=== PATIENT | female | born 1975 | race Two or more races ===

== ENCOUNTER 2018-02-17 13:59 | Emergency (ER) | payer MEDICAID ==
[2018-02-17 14:44] LABS: % BASOPHILS 0.6 % (0.0-2.0); % LYMPHOCYTES 31.5 % (20.0-50.0); % MONOCYTES 6.9 % (2.0-10.0); EOSINOPHILE ABSOLUTE 0.2 Th/cmm (0.1-0.4); HEMATOCRIT 35.1 % (41.0-60); HEMOGLOBIN 11.7 gm/dL (12-16); LYMPHOCYTE ABSOLUTE 2.5 Th/cmm (1.5-3.0); MEAN CELL VOLUME 89.9 fl (81-100); MEAN CORPUSCULAR HEMOGLOBIN 29.9 pg (27.0-31.0); MEAN CORPUSCULAR HGB CONC 33.3 pg (28.0-36.0); MEAN PLATELET VOLUME 7.5 fl; MONOCYTE ABSOLUTE 0.5 Th/cmm (0.3-1.0); NEUTROPHILE ABSOLUTE 4.6 Th/cmm (1.8-8.0); PLATELET COUNT 248 Th/cmm (150-400); RED BLOOD COUNT 3.91 Mil/cmm (3.80-5.10); RED CELL DISTRIBUTION WIDTH 13.4 % (11.5-20.0); WHITE BLOOD COUNT 7.8 Th/cmm (4.8-10.8)
--- NOTE | 2018-02-17 14:45 | ED Physician Chart ---
ED Chief Complaint/HPI - Patient Information Date Seen:: 02/17/18 Time Seen:: 14:20 Chief Complaint:: dizziness History of Present Illness:: THIS IS A 43 YO FEMALE WITH SEVERAL BOUTS OF DIZZINESS WITHOUT LOSS OF CONSCIOUSNESS. SHE DENIES, FEVER, HEADACHE BUT ADMITS TO VOMITING ONCE. SHE DENIES DIARRHEA AND CONSTIPATION. SHE DENIES PAINFUL OR FREQUENT URINATION. SHE DENIES HYPERTENSION AND HEART DISEASE. SHE DENIES A RECENT COUGH OR COLD AND DENIES HAVING A HEADACHE. Allergies:: Allergies Allergy/AdvReac Type Severity Reaction Status Date / Time No Known Allergies Allergy Verified 02/17/18 14:13 Vitals:: Vital Signs - 8 hr 02/17/18 14:13 Temp 98.1 F HR 83 RR 16 BP 123/86 O2 Sat % 97 Historian:: Patient Review:: Nurse's Note Reviewed ED Review of Systems - Review of Systems General/Constitutional: No fever, No chills, No weight loss, No weakness, No diaphoresis, No edema, No loss of appetite Skin: No skin lesions, No rash, No bruising Head: No headache, No light-headedness Eyes: No loss of vision, No pain, No diplopia ENT: No earache, No nasal drainage, No sore throat, No tinnitus Neck: No neck pain, No swelling, No thyromegaly, No stiffness, No mass noted Cardio Vascular: No chest pain, No palpitations, No PND, No orthopnea, No edema Pulmonary: No SOB, No cough, No sputum, No wheezing GI: No nausea, No vomiting, No diarrhea, No pain, No melena, No hematochezia, No constipation, No hematemesis G/U: No dysuria, No frequency, No hematuria Musculoskeletal: No bone or joint pain, No back pain, No muscle pain Endocrine: No polyuria, No polydipsia Psychiatric: No prior psych history, No depression, No anxiety, No suicidal ideation Hematopoietic: No bruising, No lymphadenopathy Allergic/Immuno: No urticaria, No angioedema Neurological: No syncope, No focal symptoms, No weakness, No paresthesia, No headache, No seizure, Dizziness, No confusion, No vertigo ED Past Medical History - Past Medical History Obtainable: Yes Past Medical History: No significant medical hx Family History: None Social History: Non Smoker, No Alcohol, No Drug Use, Employed Surgical History: (THREE C-SECTIONS.) Family Medical History - Family Member Mother History Unknown: Yes Ethnicity: Hx Family Cancer: No Hx Family Coronary Artery Disease: No Hx Family Hypertension: No Hx Family Diabetes: No Hx Family Seizures: No Hx Family HIV: No Hx Family COPD: No Hx Family Hepatitis: No Hx Family Psychiatric Problems: No ED Physical Exam - Physical Examination General/Constitutional: Awake, Well-developed, well-nourished, Alert, No distress, GCS 15, Non-toxic appearing, Ambulatory Head: Atraumatic Eyes: Lids, conjuctiva normal, PERRL, EOMI Skin: Nl inspection, No rash, No skin lesions, No ecchymosis, Well hydrated, No lymphadenopathy ENMT: External ears, nose nl, Nasal exam nl, Lips, teeth, gums nl Neck: Nontender, Full ROM w/o pain, No JVD, No nuchal rigidity, No bruit, No mass, No stridor Respiratory: Nl effort/Exclusion, Clear to Auscultation, No Wheeze/Rhonchi/Rales Cardio Vascular: RRR, No murmur, gallop, rubs, NL S1 S2 GI: No tenderness/rebounding/guarding, No organomegaly, No hernia, Normal BS's, Nondistended, No mass/bruits, No McBurney tenderness : No CVA tenderness Extremities: No tenderness or effusion, Full ROM, normal strength in all extremities, No edema, Normal digits & nails Neuro/Psych: Alert/oriented, DTR's symmetric, Normal sensory exam, Normal motor strength, Judgement/insight normal, Mood normal, Normal gait, No focal deficits Misc: Normal back, No paraspinal tenderness ED Labs/Radiology/EKG Results - Lab Results Results: Laboratory Tests 02/17/18 14:26 POC Ur Test Negative Abnormal Lab Results 02/17/18 02/17/18 02/17/18 14:15 14:26 14:35 WBC 7.8 RBC 3.91 Hgb 11.7 L Hct 35.1 L MCV 89.9 MCH 29.9 MCHC Differential 33.3 RDW 13.4 Plt Count 248 MPV 7.5 Neutrophils % 59.0 Lymphocytes % 31.5 Monocytes % 6.9 Eosinophils % 2.0 Basophils % 0.6 Sodium Potassium Chloride Carbon Dioxide Anion Gap BUN Creatinine Est GFR ( Amer) Est GFR (Non-Af Amer) BUN/Creatinine Ratio Glucose Calcium Total Bilirubin AST ALT Alkaline Phosphatase Total Protein Albumin Globulin Albumin/Globulin Ratio Urine Source CLEAN C Urine Color YELLOW Urine Clarity HAZY Urine pH 7.5 Ur Specific [place] 1.015 Urine Protein NEGATIVE Urine Glucose (UA) NEGATIVE Urine Ketones NEGATIVE Urine Blood NEGATIVE Urine Nitrate NEGATIVE Urine Bilirubin NEGATIVE Urine Urobilinogen 0.2 Ur Leukocyte Esterase NEGATIVE Urine RBC 0-2 Urine WBC 2-5 Ur Epithelial Cells MODERATE Urine Bacteria 1+ H POC Ur Test Negative 02/17/18 14:35 WBC RBC Hgb Hct MCV MCH MCHC Differential RDW Plt Count MPV Neutrophils % Lymphocytes % Monocytes % Eosinophils % Basophils % Sodium 135 L Potassium 3.8 Chloride 103 Carbon Dioxide 25.2 Anion Gap 10.6 BUN 11 Creatinine 0.6 Est GFR ( Amer) > 60.0 Est GFR (Non-Af Amer) > 60.0 BUN/Creatinine Ratio 18.3 Glucose 102 Calcium 9.3 Total Bilirubin 0.4 AST 15 ALT 9 Alkaline Phosphatase 62 Total Protein 7.4 Albumin 4.3 Globulin 3.1 Albumin/Globulin Ratio 1.4 Urine Source Urine Color Urine Clarity Urine pH Ur Specific [place] Urine Protein Urine Glucose (UA) Urine Ketones Urine Blood Urine Nitrate Urine Bilirubin Urine Urobilinogen Ur Leukocyte Esterase Urine RBC Urine WBC Ur Epithelial Cells Urine Bacteria POC Ur Test ED Assessment - Assessment General Assessment: DIZZINESS ED Septic Shock - . Is Septic Shock (SBP<90, OR Lactate>4 mmol\L) present?: No - <6hrs of presentation: Vital Signs: Vital Signs - 8 hr 02/17/18 14:13 Temp 98.1 F HR 83 RR 16 BP 123/86 O2 Sat % 97 ED Reassessment (Disposition) - Reassessment Reassessment Condition:: Improved - Diagnosis Diagnosis:: URINARY TRACT INFECTION - Aftercare/Follow up Instructions Aftercare/Follow-Up Instructions:: Counseled pt regarding lab results/diagnosis & need follow up, Refer to Discharge Instructions, Counseled pt & family regarding lab results/diagnosis & need follow up - Patient Disposition Discharge/Transfer:: Home Condition at Disposition:: Improved
[2018-02-17 14:49] LABS: URINE BILIRUBIN NEGATIVE (NEGATIVE); URINE BLOOD NEGATIVE (NEGATIVE); URINE GLUCOSE (UA) NEGATIVE (NEGATIVE); URINE KETONE NEGATIVE (NEGATIVE); URINE LEUKOCYTE ESTERASE NEGATIVE (NEGATIVE); URINE NITRATE NEGATIVE (NEGATIVE); URINE PH 7.5 (4.6 - 8.0); URINE PROTEIN NEGATIVE (NEGATIVE); URINE SOURCE CLEAN C; URINE UROBILINOGEN 0.2 E.U./dL (0.2 - 1.0)
[2018-02-17 14:53] LABS: URINE CLARITY HAZY (CLEAR); URINE COLOR YELLOW; URINE MICROSCOPIC INDICATED? YES
[2018-02-17 14:54] LABS: URINE BACTERIA 1+ /hpf (NONE SEEN); URINE EPITHELIAL CELLS MODERATE /lpf (FEW); URINE RBC 0-2 /hpf (0-5)
[2018-02-17 14:57] LABS: ALB/GLOB RATIO 1.4 (1.0-1.8); ALBUMIN 4.3 gm/dL (3.7-5.3); ALKALINE PHOSPHATASE 62 U/L (34-104); ANION GAP 10.6 (7.0-16.0); BILIRUBIN,TOTAL 0.4 mg/dL (0.3-1.0); BUN - UREA NITROGEN 11 mg/dL (7-25); CALCIUM SERUM 9.3 mg/dL (8.6-10.3); CARBON DIOXIDE 25.2 mEq/L (21.0-31.0); CHLORIDE 103 mEq/L (98-107); CREATININE - SERUM 0.6 mg/dL (0.6-1.2); GFR AFRICAN-AMERICAN > 60.0 ml/min (>90); GFR NON AFRICAN-AMERICAN > 60.0 ml/min; GLUCOSE 102 mg/dL (70-105); POTASSIUM SERUM 3.8 mEq/L (3.5-5.1); SGOT 15 U/L (13-39); SGPT/ALT 9 U/L (7-52); SODIUM SERUM 135 mEq/L (136-145); TOTAL PROTEIN,SERUM 7.4 gm/dL (6.0-8.3)
[2018-02-17] MEDS ORDERED: Acetaminophen 500 MG TAB PO ONE (15:02)
[2018-02-17] MEDS ORDERED: Acetaminophen 500 MG TAB ONE (15:04)
== END 2018-02-17 16:02 | disposition home or self-care (01) ==
LOC: EDBD 13:59 → ER 13:59
DX: N39.0 Urinary tract infection, site not specified (principal); R42 Dizziness and giddiness; Z98.890 Other specified postprocedural states
CPT/HCPCS: 99284; 96372; 36415; 84443; 85025; 81001; 81025; 80053; J0696; Z7502; Z7610